=== PATIENT | male | born 1960 | race African-American/Black ===

== ENCOUNTER 2020-07-07 09:59 | Outpatient (CLI) | payer MEDICARE, OTHER ==
[2020-07-07 11:34] LABS: Bilirubin Neg (Negative); Blood, Urine Negative (Negative); Clarity Clear (Clear); Glucose, Urine (Dipstick) Normal (Negative); Ketone, Urine Negative (Negative); Leukocyte Negative (Negative); Nitrite Negative (Negative); Protein, Urine (Dipstick) 15 mg/dl (Neg-Trace); Specific Gravity, Urine 1.005 (1.002-1.036); Urobilinogen Normal mg/dL (Less than 2); pH, Urine 6.5 (5.0-9.0)
[2020-07-07 11:42] LABS: Hemoglobin 11.4 g/dL (13.5-17.5); Mean Corpuscular Volume 93.8 fl (81.2-95.1); Mean Platelet Volume 8.7 fl (7.4-10.4); Platelet Count 244 10x3/uL (150-450); Red Blood Cell (RBC) Count 3.68 10x6/uL (4.32-5.72); White Blood Cell (WBC) Count 3.4 10x3/uL (3.5-10.5)
[2020-07-07 11:56] LABS: PTT 26.6 sec (22.0-33.0); Prothrombin Time 10.8 sec (9.5-12.1)
[2020-07-07 11:57] LABS: ALT (SGPT) 19 U/L (8-55); AST (SGOT) 36 U/L (5-34); Alkaline Phosphatase 50 U/L (40-110); Anion Gap 17 mmol/L (10-20); BUN (Urea Nitrogen) 6 mg/dL (8.4-25.7); Bilirubin, Direct 0.2 mg/dL (0.1-0.3); Bilirubin, Total 0.3 mg/dL (0.2-1.2); Calc. Creatinine Clearance 0 mL/min (70-130); Calcium 9.2 mg/dL (7.8-10.44); Carbon Dioxide 21 mmol/L (22-29); Chloride 101 mmol/L (98-107); Glucose 85 mg/dL (70-105); Potassium 3.9 mmol/L (3.5-5.1); Protein, Total 8.1 g/dL (6.0-8.3); Sodium 135 mmol/L (136-145)
[2020-07-07 12:18] LABS: RBC/HPF None Seen HPF (0-3); Squamous Epithelial None Seen HPF (0-3); WBC/HPF 0-3 HPF (0-3)
[2020-07-07 12:19] LABS: Bacteria/HPF Rare-Few HPF (None Seen)
[2020-07-07 19:17] LABS: SARS-CoV-2 PCR by NAA Not Detected (NotDetected)
== END 2020-07-07 10:00 | disposition home or self-care (01) ==
LOC: LABBT 09:59
PROVIDERS: ATTEND Urology
DX: Z01.818 Encounter for other preprocedural examination (principal); Z12.5 Encounter for screening for malignant neoplasm of prostate; R97.20 Elevated prostate specific antigen [PSA]; B18.1 Chronic viral hepatitis B without delta-agent; F10.20 Alcohol dependence, uncomplicated; N40.1 Benign prostatic hyperplasia with lower urinary tract symptoms; R35.0 Frequency of micturition; M10.9 Gout, unspecified; N18.9 Chronic kidney disease, unspecified
CPT/HCPCS: 71046; 80048; 80076; 81001; 85027; 85610; 85730; 87086; 93005; U0003; U0005; 87635; 93010

== ENCOUNTER 2020-07-12 06:20 | Day surgery (SDC) | payer MEDICARE, MEDICAID ==
[2020-07-11 14:13] VITALS: BMI 19.9
[2020-07-12] MEDS ORDERED: Phenylephrine 10 MG/ML VIAL ONE (06:24)
[2020-07-12] MEDS ORDERED: Fentanyl 100 MCG/2 ML VIAL ONE ×2 (06:24→09:21)
[2020-07-12] MEDS ORDERED: Famotidine/PF 20 mg/2ml Vial ONE (06:24)
[2020-07-12] MEDS ORDERED: SUGAMMADEX SODIUM 500 MG/5 ML VIAL ONE (06:24)
[2020-07-12] MEDS ORDERED: Levofloxacin 500 mg/D5W 100 ml Premix Bag ONE (06:34)
[2020-07-12] MEDS ORDERED: cefTRIAXone\\ROCEPHIN 1 GM VIAL ONE (06:34)
[2020-07-12] MEDS ORDERED: Sodium Chloride 0.9% 100 ML ONE (06:34)
[2020-07-12] MEDS ORDERED: Iothalamate Meglumine 60% 50 ML VIAL FS ONE (06:53)
[2020-07-12] MEDS ORDERED: Rocuronium Bromide 10 MG/ML (10ML VIAL) ONE (09:30)
[2020-07-12] MEDS ORDERED: Metoclopramide HCl 10 MG/2 ML VIAL ONE (09:30)
[2020-07-12] MEDS ORDERED: Lidocaine 1% PF 5 ML VIAL ONE (09:30)
[2020-07-12] MEDS ORDERED: Ondansetron PF 4 MG/2 ML Vial ONE (09:30)
[2020-07-12] MEDS ORDERED: PROPOFOL 200 MG/20 ML VIAL ONE (09:30)
[2020-07-12] MEDS ORDERED: Phenazopyridine HCl 100 MG TAB ONE (10:41)
== END 2020-07-12 12:45 | disposition home or self-care (01) ==
LOC: SDC 06:20
PROVIDERS: ATTEND Urology
PROC: BT1D1ZZ Fluoroscopy of Right Kidney, Ureter and Bladder using Low Osmolar Contrast (ICD-10-PCS; principal; 2020-07-12)
PROC: 0VB03ZX Excision of Prostate, Percutaneous Approach, Diagnostic (ICD-10-PCS; 2020-07-12)
DX: N13.30 Unspecified hydronephrosis (principal); C61 Malignant neoplasm of prostate; I12.9 Hypertensive chronic kidney disease with stage 1 through stage 4 chronic kidney disease, or unspecified chronic kidney disease; N18.9 Chronic kidney disease, unspecified; N35.919 Unspecified urethral stricture, male, unspecified site; N40.1 Benign prostatic hyperplasia with lower urinary tract symptoms; R35.0 Frequency of micturition; E78.5 Hyperlipidemia, unspecified; E03.9 Hypothyroidism, unspecified; G62.9 Polyneuropathy, unspecified; K21.9 Gastro-esophageal reflux disease without esophagitis; F17.220 Nicotine dependence, chewing tobacco, uncomplicated; F10.20 Alcohol dependence, uncomplicated; B18.1 Chronic viral hepatitis B without delta-agent; M10.9 Gout, unspecified; Z79.899 Other long term (current) drug therapy
CPT/HCPCS: 52005; 55700; 74420; Q9961; 88305; J0696; J1956; J2370; J2405; J2704; J2765; J3010; J3490; S0028

== ENCOUNTER 2020-09-05 09:51 | Outpatient (CLI) | payer MEDICARE, MEDICAID ==
[2020-09-05] MEDS ORDERED: Magnevist 469MG/ML 20 ML VIAL ONE (09:54)
== END 2020-09-05 09:52 | disposition home or self-care (01) ==
LOC: TBSIIMAG 09:51
PROVIDERS: ATTEND Family Medicine
DX: C61 Malignant neoplasm of prostate (principal); R97.20 Elevated prostate specific antigen [PSA]
CPT/HCPCS: 72197; 82565; A9579

== ENCOUNTER 2020-09-22 13:07 | Outpatient (CLI) | payer MEDICARE, MEDICAID ==
[~2020-09-22 13:07] MED LIST: Furosemide 40 MG/4 ML VIAL ONE
== END 2020-09-22 13:08 | disposition home or self-care (01) ==
LOC: NM 13:07
PROVIDERS: ATTEND Urology
DX: C61 Malignant neoplasm of prostate (principal); N18.9 Chronic kidney disease, unspecified; N13.30 Unspecified hydronephrosis; N26.1 Atrophy of kidney (terminal)
CPT/HCPCS: 78708; A4641; A9562; J1940